=== PATIENT | male | born 1970 | race Caucasian/White ===

== ENCOUNTER 2019-06-21 01:13 | Emergency (ER) | payer OTHER ==
[2019-06-21 01:38] VITALS: BP 112/78; PULSE 71; TEMP 98.2; BMI 26.4
[2019-06-21] MEDS ORDERED: FLUORESCEIN NA 1 EA STRIP ONE (01:38)
[2019-06-21] MEDS ORDERED: TETRACAINE 0.5% OPHTH SOLN 2 ML BOTTLE ONE (01:38)
--- NOTE | 2019-06-21 01:46 | PDOC ---
History of Present Illness - General Chief Complaint: Eye Problem Stated Complaint: LT EYE PAIN History Source: Patient Exam Limitations: No Limitations - History of Present Illness Initial Comments: 06/21/19 01:46 This is a 49-year-old male who comes in complaining of a foreign body sensation in his left eye. Patient denies any other complaints. Patient said that he was working on a drop ceiling and thinks he may have gotten's something in his eye. Allergies: as per nursing notes Past Medical History: none Social history: Lives with family. No smoking. No alcohol. No illicit drugs. Surgical history: None General: No fevers or chills, no weakness, no weight loss HEENT: No change in vision. No sore throat,. No ear pain, foreign body sensation left eye CardioVascular: no chest discomfort. No shortness of breath Respiratory:No cough, or wheezing. Gastrointestinal: no nausea, vomiting, diarrhea or constipation, No rectal bleeding Genitourinary: No dysuria, hematuria, or frequency Musculoskeletal: No joint or muscle pain or swelling Neurologic: No headache, vertigo, dizziness or loss of consciousness Psychiatric: nor depression Skin: No rashes or easy bruising Endocrine: no increased thirst or abnormal weight change Allergic: no skin or latex allergy All other systems reviewed and normal GENERAL: The patient is awake, alert, and fully oriented, in no acute distress. HEAD: Normal with no signs of trauma. EYES: Pupils equal, round and reactive to light, extraocular movements intact, sclera anicteric, conjunctiva clear. Eyelids inverted and no foreign body visible, no increased uptake on fluorescein staining. EXTREMITIES:atraumatic, Normal range of motion, no edema. NEUROLOGICAL: Normal speech, normal gait. PSYCH: Normal mood, normal affect. SKIN: Warm, Dry, normal turgor, no rashes or lesions noted. Assessment and plan: This is a 49-year-old male with left eye foreign body sensation. There is no visible foreign body and no corneal abrasion with forcing staining. 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 if he still has any discomfort Past History - Past Medical History Allergies/Adverse Reactions: Allergies Allergy/AdvReac Type Severity Reaction Status Date / Time No Known Allergies Allergy Unverified 06/21/19 01:14 Home Medications: Ambulatory Orders Brimonidine Tartrate/Timolol [Combigan Eye Drops] 10 ml OP BID 06/21/19 Cyclosporine [Restasis] 1 each OP BID 06/21/19 COPD: No - Suicide/Smoking/Psychosocial Hx Smoking History: Current every day smoker Number of Cigarettes Smoked Daily: 4 Information on smoking cessation initiated: Yes *Physical Exam - Vital Signs Last Vital Signs Temp Pulse Resp BP Pulse Ox 98.2 F 71 16 112/78 100 06/21/19 01:18 06/21/19 01:18 06/21/19 01:18 06/21/19 01:18 06/21/19 01:18 *DC/Admit/Observation/Transfer Diagnosis at time of Disposition: Discomfort of left eye - Discharge Dispostion Disposition: HOME Condition at time of disposition: Stable Decision to Admit order: No - Referrals Referrals: Geovanna Cook [Primary Care Provider] - - Patient Instructions Additional Instructions: Follow-up with your eye doctor in the morning if he still have any discomfort.. Return to the emergency department immediately with ANY new, persistent or worsening symptoms. Continue any medications as previously prescribed by your physician. You should follow up with your primary doctor as soon as possible regarding today's emergency department visit. . Please make sure your doctor reviews the results of your emergency evaluation. Thank you for coming to the Emergency Department today for your care. It was a pleasure to see you today. Please note that your evaluation is INCOMPLETE until you follow-up with your doctor. - Post Discharge Activity
[2019-06-21] MEDS ORDERED: IBUPROFEN 600 MG TABLET (FP) PO ONE ×2 (01:49)
[2019-06-21] MEDS ORDERED: ACETAMINOPHEN 500 MG TABLET (FP) PO ONE (01:50)
[2019-06-21] MEDS ORDERED: ACETAMINOPHEN 500 MG TABLET (FP) ONE (01:51)
== END 2019-06-21 01:53 | disposition home or self-care (01) ==
LOC: FER 01:13
DX: H57.12 Ocular pain, left eye (principal); F17.210 Nicotine dependence, cigarettes, uncomplicated
CPT/HCPCS: 99281-25